=== PATIENT | male | born 1990 | race American Indian/Alaskan Native ===

== ENCOUNTER 2021-05-01 02:10 | Emergency (ER) | payer OTHER ==
[2021-05-01 02:34] VITALS: BP 126/80
--- NOTE | 2021-05-01 04:13 | Emergency Department Report ---
ED ENT HPI - General Chief complaint: Earache Stated complaint: SOMETHING CRAWLED INTO RIGHT EAR NOW IN PAIN Time Seen by Provider: 05/01/21 03:34 Source: patient Mode of arrival: Ambulatory Limitations: No Limitations - History of Present Illness Initial comments: Work-up presenting problem this year presents emerge department seeking to be removed with no discharge no fever chills sweats no sore throat MD complaint: ear pain Severity: mild Consistency: constant Improves with: none Worsens with: none Associated Symptoms: denies: pain with swallowing, sore throat, discharge from ear, rhinorrhea - Related Data Allergies Allergy/AdvReac Type Severity Reaction Status Date / Time No Known Allergies Allergy Unverified 05/01/21 02:24 ED Dental HPI - General Chief complaint: Earache Stated complaint: SOMETHING CRAWLED INTO RIGHT EAR NOW IN PAIN Time Seen by Provider: 05/01/21 03:34 Source: patient Mode of arrival: Ambulatory Limitations: No Limitations - Related Data Allergies Allergy/AdvReac Type Severity Reaction Status Date / Time No Known Allergies Allergy Unverified 05/01/21 02:24 ED Review of Systems ROS: Stated complaint: SOMETHING CRAWLED INTO RIGHT EAR NOW IN PAIN Other details as noted in HPI Comment: All other systems reviewed and negative ED Physical Exam - General Limitations: No Limitations General appearance: alert, in no apparent distress - Head Head exam: Present: atraumatic, normocephalic - Eye Eye exam: Present: normal appearance - ENT ENT exam: Present: mucous membranes moist, other (Small spider in the area) - Neck Neck exam: Present: normal inspection - Respiratory Respiratory exam: Present: normal lung sounds bilaterally. Absent: respiratory distress - Cardiovascular Cardiovascular Exam: Present: regular rate, normal rhythm. Absent: systolic murmur, diastolic murmur, rubs, gallop - GI/Abdominal GI/Abdominal exam: Present: soft, normal bowel sounds - Rectal Rectal exam: Present: deferred - Extremities Exam Extremities exam: Present: normal inspection - Back Exam Back exam: Present: normal inspection - Neurological Exam Neurological exam: Present: alert, oriented X3 - Psychiatric Psychiatric exam: Present: normal affect, normal mood - Skin Skin exam: Present: warm, dry, intact, normal color. Absent: rash ED Course Vital Signs 05/01/21 02:27 Temperature 98.9 F Pulse Rate 101 H Respiratory 18 Rate Blood Pressure 126/80 O2 Sat by Pulse 97 Oximetry Critical care attestation.: If time is entered above; I have spent that time in minutes in the direct care of this critically ill patient, excluding procedure time. ED Disposition Clinical Impression: FB ear Disposition: TO HOME OR SELFCARE Is pt being admited?: No Does the pt Need Aspirin: No Condition: Stable Instructions: Ear Foreign Body Additional Instructions: Your foreign body was removed in its entirety with no complications Referrals: PRIMARY CARE, [Primary Care Provider] - 3-5 Days
== END 2021-05-01 04:39 | disposition home or self-care (01) ==
LOC: ED 02:10
DX: T16.1XXA Foreign body in right ear, initial encounter (principal); X58.XXXA Exposure to other specified factors, initial encounter; Y93.89 Activity, other specified; Y92.89 Other specified places as the place of occurrence of the external cause; Y99.8 Other external cause status
CPT/HCPCS: 99282